=== PATIENT | female | born 2000 | race Caucasian/White ===

== ENCOUNTER 2021-02-13 09:41 | Emergency (ER) | payer SELFPAY ==
[2021-02-13] MEDS ORDERED: Acetaminophen 500 MG TAB ONE (10:53)
[2021-02-13] MEDS ORDERED: Ibuprofen 800 MG TAB ONE (10:53)
== END 2021-02-13 11:10 | disposition home or self-care (01) ==
LOC: ERS 09:41
DX: M25.472 Effusion, left ankle (principal); M25.572 Pain in left ankle and joints of left foot; F17.290 Nicotine dependence, other tobacco product, uncomplicated; W18.30XA Fall on same level, unspecified, initial encounter